=== PATIENT | female | born 1945 | race Caucasian/White ===

== ENCOUNTER → 2020-09-30 | Outpatient (CLI) | payer MEDICARE ==
[~2020-09-30] MED LIST: CELEXA20 MG PO; COZAAR50 MG PO; FLAGYL500 MG PO; GLUCOPHAGE500 MG PO; IBUPROFEN800 MG PO; KLONOPIN TAB 00.5 MG PO; LEVAQUIN500 MG PO; LIPITOR TAB 2020 MG PO; NORVASC 5 MG TAB5 MG PO; OMNICEF 300 MG300 MG PO; ZETIA 10 MG TAB10 MG PO; ZOFRAN4 MG PO
[2020-09-30 13:09] LABS: RED BLOOD COUNT 3.5 M/UL (4.00-5.10); WHITE BLOOD COUNT 7.7 K/UL (4.5-11.0)
== END ==
LOC: LAB 11:37
PROVIDERS: Physician Assistant
DX: R68.83 Chills (without fever) (principal); Z98.890 Other specified postprocedural states
CPT/HCPCS: 36415; 71046; 81001; 85025

== ENCOUNTER 2020-11-16 15:40 | Emergency (ER) | payer MEDICARE ==
[~2020-11-16 15:40] MED LIST changes: -ZOFRAN4 MG PO
[2020-11-16 19:50] LABS: RED BLOOD COUNT 3.78 M/UL (4.00-5.10); WHITE BLOOD COUNT 9.9 K/UL (4.5-11.0)
[2020-11-17] MEDS ORDERED: ZOFRAN4 MG PO (00:32)
== END 2020-11-17 00:35 | disposition home or self-care (01) ==
LOC: ER1 15:40
PROVIDERS: Physician Assistant
DX: S16.1XXA Strain of muscle, fascia and tendon at neck level, initial encounter (principal); V89.2XXA Person injured in unspecified motor-vehicle accident, traffic, initial encounter
CPT/HCPCS: 72125; 80053; 85025; 99284; Q9965

== ENCOUNTER 2021-02-20 11:30 | Emergency (ER) | payer MEDICARE ==
[~2021-02-20 11:30] MED LIST changes: +ZOFRAN4 MG PO
[2021-02-20 11:59] LABS: HEMOGLOBIN 10.8 gm/dl (12.3-15.3); RED BLOOD COUNT 3.9 M/UL (4.00-5.10); WHITE BLOOD COUNT 9.2 K/UL (4.5-11.0)
[2021-02-20 12:24] LABS: BUN/CREATININE RATIO 14 (0-10)
[2021-02-20] MEDS ORDERED: MECLIZINE HCL25 MG PO (14:57)
[2021-02-20] MEDS ORDERED: ONDANSETRON ODT4 MG SL (14:57)
== END 2021-02-20 15:26 | disposition home or self-care (01) ==
LOC: ER1 11:30
PROVIDERS: Emergency Medicine
DX: E11.65 Type 2 diabetes mellitus with hyperglycemia (principal); E78.5 Hyperlipidemia, unspecified; E11.9 Type 2 diabetes mellitus without complications; F17.290 Nicotine dependence, other tobacco product, uncomplicated; I10 Essential (primary) hypertension; Z90.49 Acquired absence of other specified parts of digestive tract; Z90.710 Acquired absence of both cervix and uterus
CPT/HCPCS: 70450; 71045; 80053; 81001; 82550; 82553; 83874; 83880; 84484; 85025; 87086; 93005; 99285; J7030

== ENCOUNTER → 2021-03-10 | Outpatient (CLI) | payer MEDICARE ==
[~2021-03-10] MED LIST changes: +MECLIZINE HCL25 MG PO; +ONDANSETRON ODT4 MG SL
== END ==
LOC: CT 11:30
DX: K43.9 Ventral hernia without obstruction or gangrene (principal); E27.8 Other specified disorders of adrenal gland
CPT/HCPCS: Q9967

== ENCOUNTER → 2021-07-21 | Outpatient (CLI) | payer MEDICARE | LOC: CT 09:14 | DX: R10.32 Left lower quadrant pain (principal) | CPT/HCPCS: 36415; 82565; 84520; Q9967 ==